=== PATIENT | female | born 1995 | race Caucasian/White ===

== ENCOUNTER → 2018-04-10 08:59 | Outpatient (CLI) | payer OTHER, MEDICAID, SELFPAY ==
[2018-04-10 10:30] LABS: Hemoglobin 12.4 g/dL (12.0-16.0)
[2018-04-10 10:59] LABS: GTT (PREG) 1 Hour PP 50gm Dose 138 mg/dL (76-139)
[2018-04-10 12:25] LABS: Free T4, Direct Thyroxine 0.71 ng/dL (0.78-2.19)
[2018-04-10 12:39] LABS: Thyroid Stimulating Hormone 0.43 uIU/mL (0.47-4.68)
[2018-04-12 14:55] LABS: Thyroid Peroxidase Antibodies < 1 IU/mL (< 9)
== END ==
PROVIDERS: PCP Obstetrics & Gynecology; Visit Provider Obstetrics & Gynecology
DX: O99.280 Endocrine, nutritional and metabolic diseases complicating pregnancy, unspecified trimester (principal); E05.90 Thyrotoxicosis, unspecified without thyrotoxic crisis or storm
CPT/HCPCS: 36415; 82950; 84439; 84443; 85014; 85018; 86376

== ENCOUNTER → 2018-06-05 15:27 | Outpatient (CLI) | payer OTHER, MEDICAID, SELFPAY ==
[2018-06-06 18:38] LABS: Strep Grp B PCR NEG for Grp B Strep
== END ==
PROVIDERS: PCP Obstetrics & Gynecology; Visit Provider Obstetrics & Gynecology
DX: Z34.03 Encounter for supervision of normal first pregnancy, third trimester (principal)
CPT/HCPCS: 87653

== ENCOUNTER 2018-06-14 16:25 | Outpatient (CLI) | payer OTHER, MEDICAID, SELFPAY | END 2018-06-14 17:30 | disposition home or self-care (01) | LOC: LABOR 17:28 → OB 06-17 16:25 | PROVIDERS: PCP Obstetrics & Gynecology; Visit Provider Obstetrics & Gynecology | DX: O13.3 Gestational [pregnancy-induced] hypertension without significant proteinuria, third trimester (principal); Z3A.37 37 weeks gestation of pregnancy | CPT/HCPCS: 59025; G0378; G0379 ==

== ENCOUNTER 2018-07-01 02:56 | Inpatient (IN) | payer OTHER, MEDICAID, SELFPAY ==
[2018-07-01 04:39] VITALS: BP 134/76
[2018-07-01 04:41] LABS: Add Manual Diff / Slide Review NO; Basophils Absolute Auto 0 /uL (0-100); Basophils Percent Auto 0.4 % (0-2); Eosinophils Absolute Auto 100 /uL (0-450); Eosinophils Percent Auto 0.8 % (2-4); Hematocrit 35.4 % (36-46); Hemoglobin 11.9 g/dL (12.0-16.0); Lymphocytes Absolute Auto 2100 /uL (1100-4500); Lymphocytes Percent Auto 25.8 % (25-40); Mean Corpuscular HGB Conc 33.7 % (30-36); Mean Corpuscular Hemoglobin 31.1 PG (26-34); Mean Corpuscular Volume 92.5 fL (80-100); Monocytes Absolute Auto 900 /uL (0-900); Monocytes Percent Auto 10.9 % (3-14); Neutrophils Absolute Auto 5000 /uL (1500-7000); Neutrophils Percent Auto 62.1 % (50-75); Platelet Count 216 X10^3/uL (150-400); Red Blood Cell Count 3.83 X10^6/uL (4.0-5.2); Red Cell Distribution Width 14.5 % (11.6-14.8); White Blood Cell Count 8.1 X10^3/uL (4.5-11.0)
--- NOTE | 2018-07-01 08:10 | PM.OBHP.1 ---
OB HPI Date/Time Date of admission: 07/01/18 Date Patient Seen: 07/01/18 Time Patient Seen: 08:12 History of Present Condition Chief complaint: EVALUATION OF LABOR : 1 Para: 0 Estimated Date of Delivery: 07/04/18 Estimated Gestational Age (weeks): 39 Narrative: Jefferson Sarmiento is a 22 year old female one para 0 presents with spontaneous rupture membranes at 2:30 a.m.. Indications Indication for induction OB: other (Premature spontaneous rupture membrane) History of Present care: good care Dating criteria: based on LMP only Ultrasounds: normal mid trimester US Medical complications: none Narrative: Patient transferred care a 26 weeks of Preadmission Labs Blood type: A (+) positive -: Antibody screen: negative, Cystic fibrosis screen: unknown, GBS status: negative, HBsAG: negative, HIV: negative, HSV 1: negative, HSV 2: negative and RPR/VDLR: negative -: Chlamydia screen: detected (Negative) and Gonorrhea screen: detected (Negative) -: Rubella: immune and Varicella: immune HCT: 39 PAP: Normal Sequential screen: No rash Cell-free DNA: No rash 1 hr GTT: 138 Evaluation Evaluation Variability: Average (6-10) monitor accelerations: Present monitor decelerations: Absent Category of Tracing: I Cervical dilation (cm): 3 Cervical effacement (%): 50 station: -2 Laboratory results: Laboratory Tests 07/01/18 07/01/18 04:10 04:10 WBC 8.1 RBC 3.83 L Hgb 11.9 L Hct 35.4 L MCV 92.5 MCH 31.1 MCHC 33.7 RDW 14.5 Plt Count 216 Neut % (Auto) 62.1 Lymph % (Auto) 25.8 [place] % (Auto) 10.9 Eos % (Auto) 0.8 L Baso % (Auto) 0.4 Neut # (Auto) 5000 Lymph # (Auto) 2100 [place] # (Auto) 900 Eos # (Auto) 100 Baso # (Auto) 0 Blood Type A Positive Antibody Screen Negative Comments: Membranes grossly ruptured PFSH Social History Smoking Status: Former smoker Social History Smoking Status: Former smoker Meds Home Medications Medication Instructions Recorded Confirmed Type 1 tab PO DAILY 04/01/18 07/01/18 History vitamin,calcium,aklkbcfa-sjen-afnco acid tablet Allergies Allergy/AdvReac Type Severity Reaction Status Date / Time hydrocodone [HYDROCODONE] Allergy Unknown Diarrhea Verified 07/01/18 04:04 onion AdvReac Intermediate Abdominal Verified 07/01/18 04:04 Pain Review of Systems Review of Systems All systems reviewed & are unremarkable except as noted in HPI and below Exam Vital Signs (past 8 hours): - 07/01/18 04:39 Blood Pressure 134/76 Const General: cooperative and healthy appearing [facility] Head: normal to inspection Ears: hearing grossly normal bilaterally Nose: external nose normal Face and sinus: normal facial exam Mouth: oral mucosae normal, lip normal, tongue normal and moist mucous membranes Teeth and gingiva: dentition normal Throat: posterior oropharynx normal Eyes General: appearance normal, both eyes and all related structures Neck Neck: normal visual inspection and full ROM Chest Chest: normal inspection of the chest and normal palpation of entire chest wall Breast inspection: normal inspection of the breasts and normal inspection of the axillae Breast Palpation: normal palpation of the breasts and normal palpation of the axillae Resp Effort & Inspection: normal respiratory effort Auscultation: clear to auscultation bilaterally Cardio Palpation: normal PMI Rate: regular rate Rhythm: regular rhythm Heart Sounds: S1 normal and S2 normal GI Inspection: normal to inspection Palpation: soft and no hepatosplenomegaly Percussion: normal to percussion Auscultation: normal bowel sounds Manual OB Exam: dilated 3, effaced 50% and station -2 Uterus Location (Fundal Height): 38 Presentation: vertex Estimated Weight (lbs): 8 Amniotic Fluid: clear Back/Spine/Pelvis Thoracic/Lumbar Spine: thoracic and lumbar spine normal to inspection Skin General: no rashes or lesions noted Neuro General: alert, oriented x3, tone normal and moves all extremities Cognition: normal cognition Speech: speech normal Gait: normal gait Motor: muscle tone normal throughout Sensory Exam: no sensory deficits noted Extrem General: normal to inspection and normal exam except as noted Psych Appearance: grossly normal and well kempt Mental Status: mental status grossly normal Speech and Movement: speech and movement normal Objective Labs Result Diagrams: 07/01/18 04:10 Labs: Laboratory Results - last 24 hr 07/01/18 07/01/18 04:10 04:10 WBC 8.1 RBC 3.83 L Hgb 11.9 L Hct 35.4 L MCV 92.5 MCH 31.1 MCHC 33.7 RDW 14.5 Plt Count 216 Neut % (Auto) 62.1 Lymph % (Auto) 25.8 [place] % (Auto) 10.9 Eos % (Auto) 0.8 L Baso % (Auto) 0.4 Neut # (Auto) 5000 Lymph # (Auto) 2100 [place] # (Auto) 900 Eos # (Auto) 100 Baso # (Auto) 0 Blood Type A Positive Antibody Screen Negative Assessment and Plan Assessment and Plan Assessment and Plan narrative: Term intrauterine Group B strep negative Premature spontaneous rupture membrane Pitocin augmentation of labor Time Spent with Patient Total time spent with greater than 50% in coordination of care (as documented) at patient's floor/unit and/or counseling patient:: 15-24 minutes
--- NOTE | 2018-07-01 08:19 | P.HPOB_ITS ---
OB HPI Date/Time Date of admission: 07/01/18 Date Patient Seen: 07/01/18 Time Patient Seen: 08:12 History of Present Condition Chief complaint: EVALUATION OF LABOR : 1 Para: 0 Estimated Date of Delivery: 07/04/18 Estimated Gestational Age (weeks): 39 Narrative: Jefferson Sarmiento is a 22 year old female one para 0 presents with spontaneous rupture membranes at 2:30 a.m.. Indications Indication for induction OB: other (Premature spontaneous rupture membrane) History of Present care: good care Dating criteria: based on LMP only Ultrasounds: normal mid trimester US Medical complications: none Narrative: Patient transferred care a 26 weeks of Preadmission Labs Blood type: A (+) positive -: Antibody screen: negative, Cystic fibrosis screen: unknown, GBS status: negative, HBsAG: negative, HIV: negative, HSV 1: negative, HSV 2: negative and RPR/VDLR: negative -: Chlamydia screen: detected (Negative) and Gonorrhea screen: detected (Negative) -: Rubella: immune and Varicella: immune HCT: 39 PAP: Normal Sequential screen: No rash Cell-free DNA: No rash 1 hr GTT: 138 Evaluation Evaluation Variability: Average (6-10) monitor accelerations: Present monitor decelerations: Absent Category of Tracing: I Cervical dilation (cm): 3 Cervical effacement (%): 50 station: -2 Laboratory results: Laboratory Tests 07/01/18 07/01/18 04:10 04:10 WBC 8.1 RBC 3.83 L Hgb 11.9 L Hct 35.4 L MCV 92.5 MCH 31.1 MCHC 33.7 RDW 14.5 Plt Count 216 Neut % (Auto) 62.1 Lymph % (Auto) 25.8 [place] % (Auto) 10.9 Eos % (Auto) 0.8 L Baso % (Auto) 0.4 Neut # (Auto) 5000 Lymph # (Auto) 2100 [place] # (Auto) 900 Eos # (Auto) 100 Baso # (Auto) 0 Blood Type A Positive Antibody Screen Negative Comments: Membranes grossly ruptured PFSH Social History Smoking Status: Former smoker Social History Smoking Status: Former smoker Meds Home Medications Medication Instructions Recorded Confirmed Type 1 tab PO DAILY 04/01/18 07/01/18 History vitamin,calcium,yhvvjwdm-mjbq-jsweg acid tablet Allergies Allergy/AdvReac Type Severity Reaction Status Date / Time hydrocodone [HYDROCODONE] Allergy Unknown Diarrhea Verified 07/01/18 04:04 onion AdvReac Intermediate Abdominal Verified 07/01/18 04:04 Pain Review of Systems Review of Systems All systems reviewed & are unremarkable except as noted in HPI and below Exam Vital Signs (past 8 hours): - 07/01/18 04:39 Blood Pressure 134/76 Const General: cooperative and healthy appearing [facility] Head: normal to inspection Ears: hearing grossly normal bilaterally Nose: external nose normal Face and sinus: normal facial exam Mouth: oral mucosae normal, lip normal, tongue normal and moist mucous membranes Teeth and gingiva: dentition normal Throat: posterior oropharynx normal Eyes General: appearance normal, both eyes and all related structures Neck Neck: normal visual inspection and full ROM Chest Chest: normal inspection of the chest and normal palpation of entire chest wall Breast inspection: normal inspection of the breasts and normal inspection of the axillae Breast Palpation: normal palpation of the breasts and normal palpation of the axillae Resp Effort & Inspection: normal respiratory effort Auscultation: clear to auscultation bilaterally Cardio Palpation: normal PMI Rate: regular rate Rhythm: regular rhythm Heart Sounds: S1 normal and S2 normal GI Inspection: normal to inspection Palpation: soft and no hepatosplenomegaly Percussion: normal to percussion Auscultation: normal bowel sounds Manual OB Exam: dilated 3, effaced 50% and station -2 Uterus Location (Fundal Height): 38 Presentation: vertex Estimated Weight (lbs): 8 Amniotic Fluid: clear Back/Spine/Pelvis Thoracic/Lumbar Spine: thoracic and lumbar spine normal to inspection Skin General: no rashes or lesions noted Neuro General: alert, oriented x3, tone normal and moves all extremities Cognition: normal cognition Speech: speech normal Gait: normal gait Motor: muscle tone normal throughout Sensory Exam: no sensory deficits noted Extrem General: normal to inspection and normal exam except as noted Psych Appearance: grossly normal and well kempt Mental Status: mental status grossly normal Speech and Movement: speech and movement normal Objective Labs Result Diagrams: 07/01/18 04:10 Labs: Laboratory Results - last 24 hr 07/01/18 07/01/18 04:10 04:10 WBC 8.1 RBC 3.83 L Hgb 11.9 L Hct 35.4 L MCV 92.5 MCH 31.1 MCHC 33.7 RDW 14.5 Plt Count 216 Neut % (Auto) 62.1 Lymph % (Auto) 25.8 [place] % (Auto) 10.9 Eos % (Auto) 0.8 L Baso % (Auto) 0.4 Neut # (Auto) 5000 Lymph # (Auto) 2100 [place] # (Auto) 900 Eos # (Auto) 100 Baso # (Auto) 0 Blood Type A Positive Antibody Screen Negative Assessment and Plan Assessment and Plan Assessment and Plan narrative: Term intrauterine Group B strep negative Premature spontaneous rupture membrane Pitocin augmentation of labor Time Spent with Patient Total time spent with greater than 50% in coordination of care (as documented) at patient's floor/unit and/or counseling patient:: 15-24 minutes
[2018-07-01] MEDS: LACTATED RINGERS 1,000 ML 100 ML IV ×2 (12:51→21:59)
[2018-07-01] MEDS: OXYTOCIN PREMIX 30 UNIT/500 ML PLAST..BAG IV (12:52)
[2018-07-01] MEDS: CEFAZOLIN 2 GM/100 ML FROZ.PIGGY IV (15:54)
[2018-07-01] MEDS: fentaNYL 100 MCG/2 ML INJ 50 MCG IV ×3 (16:17→19:08)
[2018-07-01] MEDS: CEFAZOLIN 1 GM/50 ML FROZ.PIGGY IV (23:49)
--- NOTE | 2018-07-02 02:32 | PM.OBPRVD ---
Delivery date: 07/02/18 Intrapartal events: Prolonged Labor > 20 hours Cervical ripening method: none Induction method: none Delivery augmentation: pitocin Delivery monitor: external FHT and external uterine Route of delivery: Episiotomy description: None L&D Laceration Description: Superficial (vaginal) Delivery repair: chromic (4-0) Estimated blood loss (mL): 100 Anesthesia type: Epidural Complications: None Narrative: The patient was complete and pushed for 56 minutes. At 2:12 a.m., a live female delivered spontaneously over an intact perineum. A loose nuchal cord x1 was reduced on the perineum. The remainder of the body delivered without difficulty and was placed on mom's abdomen. after the cord stopped pulsing, the cord was double clamped and cut. Cord bloods were obtained. The placenta delivered intact with a 3 vessel cord at 0218. Apgars 8 at 1 minute and 9 at 5 minutes. For very superficial vaginal lacerations were repaired with 4 0 chromic in the usual fashion. Hemostasis was achieved. Estimated blood loss 100 cc. Epidural analgesia. . Mom and stable to recovery. Plan for aftercare: To routine care
--- NOTE | 2018-07-02 18:44 | PM.OBHP.1 ---
OB HPI Date/Time Date of admission: 07/01/18 Date Patient Seen: 07/01/18 Time Patient Seen: 09:30 History of Present Condition Chief complaint: labor & delivery : 1 Para: 0 Estimated Date of Delivery: 07/04/18 Estimated Gestational Age (weeks): 39+4 Narrative: Jefferson Sarmiento is a 22 year old female 1 para 0 at 39-,4/7 weeks gestation who presents with spontaneous rupture membranes at 2:00 a.m. of clear amniotic fluid. Irregular contractions. Indications Other reason(s) for admission: SROM History of Present care: good care and number of visits (7 with FMA) Dating criteria: LMP confirmed by 1st trimester US Ultrasounds: normal 1st trimester US and normal mid trimester US Obstetrical complications: none Medical complications: none Preadmission Labs Blood type: A (+) positive -: Antibody screen: negative, GBS status: negative, HBsAG: negative, HIV: negative and RPR/VDLR: negative -: Chlamydia screen: not detected and Gonorrhea screen: not detected -: Rubella: immune HCT: 36 1 hr GTT: 138 Evaluation Evaluation Baseline heart rate: 135 Variability: Moderate (11-25) monitor accelerations: Present monitor decelerations: Absent Contraction Frequency (minutes): 6 Uterine Contraction Intensity: Moderate Category of Tracing: I Cervical dilation (cm): 4 Cervical effacement (%): 75 station: -2 Laboratory results: Laboratory Tests 07/01/18 07/01/18 04:10 04:10 WBC 8.1 RBC 3.83 L Hgb 11.9 L Hct 35.4 L MCV 92.5 MCH 31.1 MCHC 33.7 RDW 14.5 Plt Count 216 Neut % (Auto) 62.1 Lymph % (Auto) 25.8 [place] % (Auto) 10.9 Eos % (Auto) 0.8 L Baso % (Auto) 0.4 Neut # (Auto) 5000 Lymph # (Auto) 2100 [place] # (Auto) 900 Eos # (Auto) 100 Baso # (Auto) 0 Blood Type A Positive Antibody Screen Negative Non-invasive Membranes Rupture Test: positive [facility] Social History Smoking Status: Former smoker Social History Smoking Status: Former smoker Meds Home Medications Medication Instructions Recorded Confirmed Type 1 tab PO DAILY 01/07/19 04/08/19 History vitamin,calcium,wyprwmku-bqay-ccvsl acid tablet Allergies Allergy/AdvReac Type Severity Reaction Status Date / Time hydrocodone [HYDROCODONE] Allergy Unknown Diarrhea Verified 07/01/18 04:04 onion AdvReac Intermediate Abdominal Verified 07/01/18 04:04 Pain Exam Vital Signs (past 8 hours): Generally: Patient is standing up in the room, moderate distress secondary to contractions Fundal height: 39 cm Estimated weight: 7 and 0.5 lb Lungs: Clear to auscultation bilaterally Cardiovascular: Regular rate and rhythm Extremities: Trace edema, negative Homans Objective Labs Result Diagrams: 07/01/18 04:10 Assessment and Plan Assessment and Plan Assessment and Plan narrative: Assessment: 22-year-old 1 para 0 at 39-,4/7 weeks gestation with spontaneous rupture of membranes 7 hours ago without regular contractions Plan: If no regular contractions in 3 hours will begin Pitocin augmentation Epidural as necessary Expected management to spontaneous vaginal delivery Time Spent with Patient Total time spent with greater than 50% in coordination of care (as documented) at patient's floor/unit and/or counseling patient:: 15-24 minutes
--- NOTE | 2018-07-02 18:50 | P.HPOB_ITS ---
OB HPI Date/Time Date of admission: 07/01/18 Date Patient Seen: 07/01/18 Time Patient Seen: 09:30 History of Present Condition Chief complaint: labor & delivery : 1 Para: 0 Estimated Date of Delivery: 07/04/18 Estimated Gestational Age (weeks): 39+4 Narrative: Jefferson Sarmiento is a 22 year old female 1 para 0 at 39- ,4/7 weeks gestation who presents with spontaneous rupture membranes at 2:00 a.m. of clear amniotic fluid. Irregular contractions. Indications Other reason(s) for admission: SROM History of Present care: good care and number of visits (7 with FMA) Dating criteria: LMP confirmed by 1st trimester US Ultrasounds: normal 1st trimester US and normal mid trimester US Obstetrical complications: none Medical complications: none Preadmission Labs Blood type: A (+) positive -: Antibody screen: negative, GBS status: negative, HBsAG: negative, HIV: negative and RPR/VDLR: negative -: Chlamydia screen: not detected and Gonorrhea screen: not detected -: Rubella: immune HCT: 36 1 hr GTT: 138 Evaluation Evaluation Baseline heart rate: 135 Variability: Moderate (11-25) monitor accelerations: Present monitor decelerations: Absent Contraction Frequency (minutes): 6 Uterine Contraction Intensity: Moderate Category of Tracing: I Cervical dilation (cm): 4 Cervical effacement (%): 75 station: -2 Laboratory results: Laboratory Tests 07/01/18 07/01/18 04:10 04:10 WBC 8.1 RBC 3.83 L Hgb 11.9 L Hct 35.4 L MCV 92.5 MCH 31.1 MCHC 33.7 RDW 14.5 Plt Count 216 Neut % (Auto) 62.1 Lymph % (Auto) 25.8 [place] % (Auto) 10.9 Eos % (Auto) 0.8 L Baso % (Auto) 0.4 Neut # (Auto) 5000 Lymph # (Auto) 2100 [place] # (Auto) 900 Eos # (Auto) 100 Baso # (Auto) 0 Blood Type A Positive Antibody Screen Negative Non-invasive Membranes Rupture Test: positive [facility] Social History Smoking Status: Former smoker Social History Smoking Status: Former smoker Meds Home Medications Medication Instructions Recorded Confirmed Type 1 tab PO DAILY 01/07/19 04/08/19 History vitamin,calcium,feuzhmlq-tupt-thmin acid tablet Allergies Allergy/AdvReac Type Severity Reaction Status Date / Time hydrocodone [HYDROCODONE] Allergy Unknown Diarrhea Verified 07/01/18 04:04 onion AdvReac Intermediate Abdominal Verified 07/01/18 04:04 Pain Exam Vital Signs (past 8 hours): Generally: Patient is standing up in the room, moderate distress secondary to contractions Fundal height: 39 cm Estimated weight: 7 and 0.5 lb Lungs: Clear to auscultation bilaterally Cardiovascular: Regular rate and rhythm Extremities: Trace edema, negative Homans Objective Labs Result Diagrams: 07/01/18 04:10 Assessment and Plan Assessment and Plan Assessment and Plan narrative: Assessment: 22-year-old 1 para 0 at 39-,4/7 weeks gestation with spontaneous rupture of membranes 7 hours ago without regular contractions Plan: If no regular contractions in 3 hours will begin Pitocin augmentation Epidural as necessary Expected management to spontaneous vaginal delivery Time Spent with Patient Total time spent with greater than 50% in coordination of care (as documented) at patient's floor/unit and/or counseling patient:: 15-24 minutes
--- NOTE | 2018-07-02 18:52 | P.PNOB_ITS ---
Subjective - OB Patient comments: no complaints and pain well controlled [place] baby status: doing well and nursing well feeding status: exclusively breast feeding Date Patient Seen: 07/02/18 Time Patient Seen: 18:51 Exam Vital Signs (past 8 hours): Generally: Patient is sitting up in bed, holding , no acute distress Fundus: Firm at U -1 Extremities: Negative Homans, no edema Objective Labs Result Diagrams: 07/01/18 04:10 Assessment & Plan Plan day: 1 plan OB: routine care Time Spent With Patient Total time spent is greater than 50% in coordination of care (as documented) at patient's floor/unit and/or counseling patient: less than 15 minutes
[2018-07-02] MEDS: LANOLIN OINT 7 GM 1 APPLIC TOP (20:04)
[2018-07-02] MEDS: IBUPROFEN 600 MG TABLET PO (20:05)
[2018-07-03] MEDS: PRENATAL VIT,CALC/IRON/FOLIC 1 TABLET 1 TAB PO (09:04)
[2018-07-03] MEDS: DOCUSATE 250 MG CAPSULE PO (09:05)
[2018-07-03 10:23] VITALS: BP 125/79; PULSE 79; RESP 16; TEMP 36.3
--- NOTE | 2018-07-03 20:10 | PM.DS.1 ---
History of Present Illness Date Patient Seen: 07/03/18 Time Patient Seen: 07:30 Chief complaint: labor & delivery Narrative: Patient is a 22-year-old 1 para 1 day # 1 status post spontaneous vaginal delivery. Discharge Providers Date of admission: 07/01/18 02:56 Discharge Date: 07/03/18 Primary care physician: Ophelia Garcia MD Consults: 07/01/18 08:10 Consult to Anesthesiology Urgent Comment: Consulting Provider: Anesthesiologist Reason for consultation: Epidural 07/02/18 03:19 Consult to Banjo Repair Person Routine Comment: Discharge provider: Ophelia Garcia MD Summary Discharge Diagnosis: 39 weeks gestation Spontaneous rupture of membranes Epidural analgesia Spontaneous vaginal delivery Hospital Course: Patient is a 22-year-old 1 para 1 who presented with spontaneous rupture of membranes without regular contractions. She was started on Pitocin augmentation. She received an epidural for pain management. She progressed to complete dilation and had a spontaneous vaginal delivery without complication. Status at Discharge Cognitive/behavioral status at discharge: oriented Functional status at discharge: independent ambulation Overall status at discharge: patient is progressing back to baseline Time Spent with Patient Less than 30 minutes Objective Labs Result Diagrams: 07/01/18 04:10 Discharge Plan Discharge Plan Patient Disposition: Home Discharge comment: Call with fever,chills or bleeding vaginally more than a pad in an hour Discharge Med Rec/Prescriptions Prescriptions: Continued prenat.vits,christine,vhw-cthq-ceejz tablet 1 tab PO DAILY RF: 0 Follow up/Referrals: Ophelia Garcia MD [Primary Care Provider] - 6 Weeks (Sunday, July at 10AM with ) Provider Discharge Instructions Diet: Regular Activity: No intercourse Skin/Wound/Dressing Care Report to your healthcare provider any signs of infection, such as:: chills, fever, increased pain and unusual drainage Visit Report/Discharge Packet Instructions: DI for Labor and Delivery, Vaginal Discharge Data Primary Care Provider: Ophelia Garcia Attending Provider: Prashant Sher Admit Date/Time: 07/01/18 02:56 Discharges patient from system. Discharge Date/Time: 07/03/18 13:30
--- NOTE | 2018-07-03 20:12 | PM.OBDS.1 ---
Discharge Providers Date of admission: 07/01/18 02:56 Discharge Date: 07/03/18 Primary care physician: Ophelia Garcia MD Consults: 07/01/18 08:10 Consult to Anesthesiology Urgent Comment: Consulting Provider: Anesthesiologist Reason for consultation: Epidural 07/02/18 03:19 Consult to Sales Product Manager Routine Comment: Discharge provider: Ophelia Garcia MD Summary Date Patient Seen: 07/03/18 Time Patient Seen: 07:30 Procedures: Pitocin augmentation of labor Epidural analgesia Spontaneous vaginal delivery Hospital Course: The patient is a 22-year-old 1 para 1 who presented at 39 weeks gestation with spontaneous rupture of membranes without regular contractions. She was started on Pitocin augmentation. She received an epidural for pain management. She progressed to complete dilation and had a spontaneous vaginal delivery without complication. Peripartum Data Infant Delivery Method: Natural Vaginal Laceration description: Superficial Episiotomy description: None Procedures: Epidural analgesia Pitocin augmentation of labor Spontaneous vaginal delivery complications: none Status at Discharge Cognitive/behavioral status at discharge: oriented Functional status at discharge: independent ambulation Overall status at discharge: patient is progressing back to baseline Time Spent with Patient Total time spent providing and/or coordinating discharge services: Less than 30 minutes Objective Labs Result Diagrams: 07/01/18 04:10 Exam Vital Signs (past 8 hours): Generally: Patient is sitting up in bed, holding infant, no acute distress Fundus: Firm at U -1 Extremities: Trace edema, negative Homans Discharge Plan Discharge Plan Patient Disposition: Home Discharge comment: Call with fever,chills or bleeding vaginally more than a pad in an hour Discharge Med Rec/Prescriptions Prescriptions: Continued prenat.vits,christine,zyo-omab-yzlii tablet 1 tab PO DAILY RF: 0 Follow up/Referrals: Ophelia Garcia MD [Primary Care Provider] - 6 Weeks (Sunday, July at 10AM with ) Provider Discharge Instructions Diet: Regular Activity: No intercourse Skin/Wound/Dressing Care Report to your healthcare provider any signs of infection, such as:: chills, fever, increased pain and unusual drainage Visit Report/Discharge Packet Instructions: DI for Labor and Delivery, Vaginal Discharge Data Primary Care Provider: Ophelia Garcia Attending Provider: Prashant Sher Admit Date/Time: 07/01/18 02:56 Discharges patient from system. Discharge Date/Time: 07/03/18 13:30
== END 2018-07-03 13:30 | disposition home or self-care (01) | DRG 560 ==
PROVIDERS: PCP Obstetrics & Gynecology
DX: O42.02 Full-term premature rupture of membranes, onset of labor within 24 hours of rupture (principal); Z3A.39 39 weeks gestation of pregnancy; Z37.0 Single live birth; O71.4 Obstetric high vaginal laceration alone
CPT/HCPCS: 01967; 59050; 59409; 85025; 86850; 86900; 86901; G0379; J0690; J2590; J3010